=== PATIENT | female | born 1990 | race Caucasian/White ===

== ENCOUNTER 2019-02-10 16:10 | Emergency (ER) | payer OTHER ==
[2019-02-10] MEDS ORDERED: ACETAMINOPHEN 500 MG TABLET (FP) PO ONE (16:15)
--- NOTE | 2019-02-10 16:16 | PDOC ---
Rapid Medical Evaluation Time Seen by Provider: 02/10/19 16:13 Medical Evaluation: Allergies Allergy/AdvReac Type Severity Reaction Status Date / Time shellfish derived Allergy Intermediate Swelling Verified 05/12/13 08:44 02/10/19 16:15 Patient c/o: vag bleeding x 2 weeks, has depo x 3 years, did preg test x 2 (1 was +) Patient on brief exam: vss, Patient ordered for: labs, urine and u/s patient to proceed to the ED Discharge Disposition - Diagnosis Vaginal bleeding - Referrals Referrals: Sher Tompkins MD [Primary Care Provider] - - Patient Instructions - Post Discharge Activity
[2019-02-10 16:20] VITALS: BP 144/91; PULSE 85; TEMP 98.6; BMI 36.9
[2019-02-10] MEDS ORDERED: ACETAMINOPHEN 325 MG TABLET (FP) ONE (16:41)
[2019-02-10 16:47] LABS: BASO % 0.6 % (0-2.0); EOS % 3.9 % (0-4.5); HEMATOCRIT 43.3 % (32.4-45.2); HEMOGLOBIN 14.8 GM/dL (10.7-15.3); LYMPH % 33.1 % (8-40); MCH 31.1 pg (25.7-33.7); MEAN CELL VOLUME 91.3 fl (80-96); MEAN PLT VOLUME 8.3 fl (7.5-11.1); MONO % 7.1 % (3.8-10.2); NEUT % 55.3 % (42.8-82.8); PLATELET COUNT 333 K/MM3 (134-434); RBC 4.75 M/mm3 (3.60-5.2); RDW 13.3 % (11.6-15.6); WHITE BLOOD COUNT 7.8 K/mm3 (4.0-10.0)
[2019-02-10 16:57] LABS: EPI CELLS 2.7 /HPF (0-5/HPF); HYALINE CASTS 3 /lpf (0-8); URINE APPEARANCE CLEAR; URINE BACTERIA 29.4 /hpf (NEGATIVE); URINE BILIRUBIN NEGATIVE (NEGATIVE); URINE COLOR YELLOW; URINE GLUCOSE (UA) NEGATIVE (NEGATIVE); URINE KETONE NEGATIVE (NEGATIVE); URINE LEUK ESTERASE NEGATIVE (NEGATIVE); URINE NITRITE NEGATIVE (NEGATIVE); URINE PROTEIN NEGATIVE (NEGATIVE); URINE RBC 22 /hpf (0-4); URINE UROBILINOGEN 0.2 mg/dL (0.2-1.0); URINE WBC 1 /hpf (0-5)
[2019-02-10 17:14] LABS: ALBUMIN 4.2 g/dl (3.4-5.0); BILIRUBIN,TOTAL 0.4 mg/dL (0.2-1); CALCIUM 9.1 mg/dL (8.5-10.1); CREATININE 0.7 mg/dL (0.55-1.3); POTASSIUM 3.9 mmol/L (3.5-5.1); TOT PROT 7.6 g/dl (6.4-8.2)
--- NOTE | 2019-02-10 17:28 | PDOC ---
History of Present Illness - General Chief Complaint: Vaginal Bleeding Stated Complaint: ABD/PAIN/NAUSEA/VAGINAL BLEEDING Time Seen by Provider: 02/10/19 16:13 - History of Present Illness Initial Comments: 02/10/19 17:24 28 y/o 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 The bleeding began about 2 days after her regular period as spotting and has worsened since then. She describes soaking through aprox. 8 pads a day at this point. Bleeding has been accompanied by occasional stabbing pain across her lower abdomen 6/10 in severity. Last pap smear last year was normal. Pt has had depo implant for last 3years which is due for removal this month.She endorses + home test, and nausea. She denies any fevers, chills, vomiting, diarrhea, bloody stools, 02/10/19 17:53 Past History - Past Medical History Allergies/Adverse Reactions: Allergies Allergy/AdvReac Type Severity Reaction Status Date / Time shellfish derived Allergy Intermediate Swelling Verified 02/10/19 16:16 Home Medications: Ambulatory Orders No Home Medications 0 dose .ROUTE UTDICT 05/04/13 Metronidazole [Metrogel-Vaginal] 70 gm VG DAILY #0 gel.w.appl 05/12/13 Cardiac Disorders: No COPD: No Diabetes: No GI Disorders: No Disorders: No Hypercholesterolemia: No Liver Disease: No Seizures: No - Surgical History Orthopedic Surgery: Yes (FOOT SX LEFT) - Reproductive History Is Patient Now?: Yes - Suicide/Smoking/Psychosocial Hx Smoking History: Never smoked Have you smoked in the past 12 months: No Hx Alcohol Use: No Drug/Substance Use Hx: No Substance Use Type: Alcohol Review of Systems - Review of Systems Constitutional: No: Chills, Fever HEENTM: No: Blurred Vision Respiratory: No: Cough, Shortness of Breath Cardiac (ROS): No: Chest Pain ABD/GI: Yes: Symptoms Reported : No: Burning, Dysuria Musculoskeletal: Yes: Back Pain Integumentary: No: Bruising, Change in Color Neurological: No: Headache, Numbness *Physical Exam - Vital Signs Last Vital Signs Temp Pulse Resp BP Pulse Ox 98.6 F 85 18 144/91 99 02/10/19 16:10 02/10/19 16:10 02/10/19 16:10 02/10/19 16:10 02/10/19 16:10 - Physical Exam General Appearance: Yes: Nourished, Appropriately Dressed. No: Apparent Distress HEENT: positive: Normal Voice. negative: Scleral Icterus (R), Scleral Icterus ( L) Neck: positive: Supple. negative: Decreased range of motion Respiratory/Chest: positive: Lungs Clear, Normal Breath Sounds. negative: Chest Tender, Respiratory Distress, Accessory Muscle Use Cardiovascular: positive: Regular Rhythm, Regular Rate, S1, S2. negative: JVD Female Pelvic Exam: positive: normal external exam, cervical os closed, adnexal tenderness (right adnexal tenderness), vaginal bleeding Gastrointestinal/Abdominal: positive: Normal Bowel Sounds, Soft, Protuberent. negative: Tender, Pulsatile Mass, Decreased BS, Distended, Guarding Musculoskeletal: positive: Normal Inspection. negative: CVA Tenderness, Vertebral Tenderness Extremity: positive: Normal Capillary Refill, Normal Inspection, Normal Range of Motion Integumentary: positive: Normal Color, Dry, Warm Neurologic: positive: Fully Oriented, Alert, Normal Mood/Affect, Normal Response ED Treatment Course - LABORATORY CBC & Chemistry Diagram: 02/10/19 16:27 02/10/19 16:27 - ADDITIONAL ORDERS Additional order review: Laboratory Results 02/10/19 02/10/19 16:27 16:27 Sodium 142 Potassium 3.9 Chloride 106 Carbon Dioxide 27 Anion Gap 9 BUN 11.0 Creatinine 0.7 Est GFR (CKD-EPI)AfAm 137.62 Est GFR (CKD-EPI)NonAf 118.74 Random Glucose 105 Calcium 9.1 Total Bilirubin 0.4 AST 26 ALT 42 Alkaline Phosphatase 56 Total Protein 7.6 Albumin 4.2 Urine Color Yellow Urine Appearance Clear Urine pH 6.0 Ur Specific [place] 1.023 Urine Protein Negative Urine Glucose (UA) Negative Urine Ketones Negative Urine Blood 3+ H Urine Nitrite Negative Urine Bilirubin Negative Urine Urobilinogen 0.2 Ur Leukocyte Esterase Negative Urine WBC (Auto) 1 Urine RBC (Auto) 22 Urine Casts (Auto) 3 U Epithel Cells (Auto) 2.7 Urine Bacteria (Auto) 29.4 02/10/19 16:27 RBC 4.75 MCV 91.3 MCHC 34.0 RDW 13.3 MPV 8.3 Neutrophils % 55.3 Lymphocytes % 33.1 Monocytes % 7.1 Eosinophils % 3.9 D Basophils % 0.6 - RADIOLOGY Radiology Studies Ordered: Category Date Time Status TRANSVAGINAL ULTRASOUND US [US] Stat Ultrasound 02/10/19 16:51 Ordered - Medications Given in the ED: ED Medications Discontinued Medications Generic Name Dose Route Start Last Admin Trade Name Neal PRN Reason Stop Dose Admin Acetaminophen 975 mg 02/10/19 16:15 02/10/19 17:03 Tylenol - PO 02/10/19 16:16 975 mg ONCE ONE Administration Medical Decision Making - Medical Decision Making 02/10/19 17:51 8 y/o 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 Labs/Imaging/Meds cbc,cmp, hcg, ua, tvus cmp, cbc, unremarkable ua 3+ blood no leukecyte esterase, no nitrites transvaginal u/s no discrete myometrial pathology endometrial thickness 0.6cm no free intraperitoneal fluid ovaries unremarkable with several subcentimeter follicles bilaterally no doppler evidence of ovarian torision , no definite sonographic abnormality identified - Awaiting hcg results 02/10/19 18:12 Per communication with Lab @ 18:12 serum test is negative. Pt advised to follow up [facility] for bleeding and to keep her appointment to have depo implant removed. *DC/Admit/Observation/Transfer Diagnosis at time of Disposition: Vaginal bleeding - Discharge Dispostion Disposition: HOME - Referrals Referrals: Sher Tompkins MD [Primary Care Provider] - Enoch Valladares MD [Staff Physician] - Eb Love MD [Staff Physician] - Nidia Travis DO [Staff Physician] - Kyung Frank MD [Staff Physician] - Kathryn Rouse MD [Staff Physician] - Jose Ramos MD [Staff Physician] - - Patient Instructions Printed Discharge Instructions: DI for Vaginal Bleeding Additional Instructions: You were seen in the ER for vaginal bleeding. Your care is not complete until you follow up with an pallet repairer doctor. Do so within the next few days. We have given you a list of doctors if you are unable to move up your appointment with your current doctor. Make sure you keep your appointment to get your implant removed. You have also been given a copy of your ultrasound report. RETURN TO THE ER: if you continue to have persistent and heavy vaginal bleeding , persistent pelvic pain not relieved by your prescribed medications, dizziness , shortness of breath, new and persistent fevers, other foul smelling discolored vaginal discharge, or for any other concerns. For more information about recommendations for heavy menstruation please visit the [employer] Website at [email or web address] - Post Discharge Activity
--- NOTE | 2019-02-10 19:01 | PDOC ---
Attending Attestation - Resident Resident Name: Phyllis Garcia - HPI HPI: 02/10/19 18:23 Pt presents to the ED complaining of vaginal bleeding for the last 2 weeks, using approximately 8 pads per day. Nohemi is due to have her norplant replaced on 03/05. Denies abodominal pain, fevers, or lightheadness. - Physicial Exam PE: 02/10/19 19:01 Agree with resident exam. Patient is alert and well appearing in the ED. Abdomen is soft, non tender and non distended without guarding or rebound. - Medical Decision Making 02/10/19 19:02 Pt presents to the ED complaining of vaginal bleeding. No evidence of severe bleeding on pelvic exam. Abdomen is non tender. Labs are within normal limits and is negative. Dysfunctional uterine bleeding secondary to hormone withdrawal vs DUB from other causes. Will discharge home with instructions to follow up with FACILITIES MAINTENANCE TECHNICIAN and return to the ED for worsening symptoms.
== END 2019-02-10 18:28 | disposition home or self-care (01) ==
LOC: JER 16:10
DX: N93.9 Abnormal uterine and vaginal bleeding, unspecified (principal)
CPT/HCPCS: 36415; 76830-TC; 80053; 81003; 84703; 85025; 99282-25

== ENCOUNTER 2022-07-21 17:30 | Inpatient (IN) | payer OTHER ==
[2022-07-21 18:05] VITALS: BMI 30.7
[2022-07-21] MEDS ORDERED: BUTORPHANOL TARTRATE 2 MG/ML VIAL IVPB PRN (19:04)
[2022-07-21] MEDS ORDERED: PROMETHAZINE HCL 25 MG/1 ML VIAL IVPB ONE (19:04)
[2022-07-21] MEDS ORDERED: OXYTOCIN 30 UNITS in 0.9% NS 30 UNIT/500 ML INFUS.BAG IVPB SCH (19:15)
[2022-07-21 19:17] LABS: BASO % 0.1 % (0-2.0); EOS % 0.6 % (0-4.5); HEMATOCRIT 34.6 % (32.4-45.2); HEMOGLOBIN 11.9 GM/dL (10.7-15.3); LYMPH % 30.9 % (8-40); MCHC 34.4 g/dl (32.0-36.0); MEAN CELL VOLUME 90.1 fl (80-96); MEAN PLT VOLUME 9.9 fl (7.5-11.1); MONO % 6.3 % (3.8-10.2); NEUT % 62.1 % (42.8-82.8); PLATELET COUNT 203 10^3/uL (134-434); RBC 3.84 M/mm3 (3.60-5.2); RDW 13.2 % (11.6-15.6); WHITE BLOOD COUNT 7.1 K/mm3 (4.0-10.0)
[2022-07-21 19:21] LABS: INR 0.97 (0.83-1.09); PROTHROMBIN TIME (PATIENT) 11.3 SEC (9.7-13.0)
[2022-07-21] MEDS ORDERED: AMPICILLIN - 2 GM in SODIUM CHLORIDE 100 ML IVPB ONE (19:30)
[2022-07-21 19:36] LABS: CALCIUM 8.2 mg/dL (8.5-10.1)
[2022-07-21 19:37] LABS: BLOOD UREA NITROGEN 10.1 mg/dL (7-18)
[2022-07-21 19:40] LABS: CREATININE 0.5 mg/dL (0.55-1.3)
[2022-07-21] MEDS: ELECTROLYTE-148 SOLN 1,000 ML IV SCH (21:00)
[2022-07-21] MEDS ORDERED: OXYTOCIN 30 UNITS in 0.9% NS 30 UNIT/500 ML INFUS.BAG IVPB ONE (21:32)
[2022-07-22] MEDS ORDERED: FENTANYL/BUPIVACAINE/NS/PF - PCEA - 50 ML DISP.SYRIN EP ONE (00:02)
[2022-07-22] MEDS ORDERED: BUPIVACAINE HCL/PF 0.25% (2.5MG/ML) 10 ML VIAL ONE (00:04)
[2022-07-22] MEDS ORDERED: FENTANYL CITRATE/PF 50 MCG/ML VIAL ONE (00:04)
[2022-07-22] MEDS ORDERED: NALOXONE HCL 0.4 MG/ML VIAL IVPUSH PRN (00:32)
[2022-07-22] MEDS ORDERED: FENTANYL/BUPIVACAINE/NS/PF - PCEA - 50 ML DISP.SYRIN EP SCH (00:45)
[2022-07-22] MEDS: ELECTROLYTE-148 SOLN 1,000 ML IV SCH (01:15)
[2022-07-22] MEDS ORDERED: LIDOCAINE HCL 1% PRESERVATIVE FREE - 30ML VIAL ONE (02:48)
[2022-07-22] MEDS ORDERED: OXYTOCIN 20 UNITS in 0.9% NS 20 UNIT/1,000 ML INFUS.BAG IV ONE (02:48)
[2022-07-22] MEDS ORDERED: oxyCODONE HCL 5 MG TABLET PO PRN (03:09)
[2022-07-22] MEDS ORDERED: BISACODYL 10 MG SUPP.RECT RC PRN (03:09)
[2022-07-22] MEDS ORDERED: METHYLERGONOVINE MALEATE 0.2 MG/1 ML AMP IM PRN (03:09)
[2022-07-22] MEDS ORDERED: BENZOCAINE 28 GM HEMORRHOIDAL OINTMENT TP PRN (03:09)
[2022-07-22] MEDS ORDERED: WITCH HAZEL 50% (TUCKS) 40 PAD/JAR PAD TP PRN (03:09)
[2022-07-22] MEDS ORDERED: BENZOCAINE 20% 57 GM BOTTLE TP PRN (03:09)
[2022-07-22] MEDS ORDERED: ACETAMINOPHEN 325 MG TABLET (FP) PO PRN (03:09)
[2022-07-22] MEDS ORDERED: OXYTOCIN 20 UNITS in 0.9% NS 20 UNIT/1,000 ML INFUS.BAG IV SCH (03:15)
[2022-07-22] MEDS: AMPICILLIN - 1 GM in SODIUM CHLORIDE 100 ML IVPB SCH (03:49)
[2022-07-22 04:26] LABS: CORD BASE EXCESS -4.4 mmol/L (0-2); CORD HCO3 23.3 mmHg (20-29); CORD PCO2 51.9 mmHg (30-78); CORD pH 7.27 (7.14-7.44)
[2022-07-22] MEDS: IBUPROFEN 600 MG TABLET (FP) PO PRN ×3 (07:45→23:38)
[2022-07-22] MEDS: FERROUS SO4 325 MG TABLET (FP) PO SCH ×3 (07:45→17:10)
[2022-07-22] MEDS: PRENATAL VITAMINS W/ FOLIC ACID TABLET (FP) PO SCH (09:22)
[2022-07-23] MEDS: IBUPROFEN 600 MG TABLET (FP) PO PRN (05:58)
[2022-07-23 07:20] LABS: BASO % 0.2 % (0-2.0); EOS % 1.2 % (0-4.5); HEMATOCRIT 36.2 % (32.4-45.2); HEMOGLOBIN 12.5 GM/dL (10.7-15.3); LYMPH % 42.4 % (8-40); MCH 31.5 pg (25.7-33.7); MCHC 34.6 g/dl (32.0-36.0); MEAN PLT VOLUME 9.6 fl (7.5-11.1); MONO % 6.8 % (3.8-10.2); NEUT % 49.4 % (42.8-82.8); PLATELET COUNT 182 10^3/uL (134-434); RBC 3.97 M/mm3 (3.60-5.2); WHITE BLOOD COUNT 7.8 K/mm3 (4.0-10.0)
[2022-07-23] MEDS: FERROUS SO4 325 MG TABLET (FP) PO SCH ×2 (09:00→12:59)
[2022-07-23 09:04] VITALS: BP 136/89; PULSE 76; RESP 18; TEMP 98
[2022-07-23] MEDS: PRENATAL VITAMINS W/ FOLIC ACID TABLET (FP) PO SCH (09:22)
[2022-07-23] MEDS ORDERED: SENNOSIDES/DOCUSATE COMBO (SENNA PLUS) TABLET (UD) PO PRN (22:00)
== END 2022-07-23 14:15 | disposition home or self-care (01) | DRG 560 ==
LOC: JLDR 17:30 → J3W 07-22 05:00
PROVIDERS: ADMIT Obstetrics & Gynecology; ATTEND Obstetrics & Gynecology
PROC: 10E0XZZ Delivery of Products of Conception, External Approach (ICD-10-PCS; principal; 2022-07-22)
DX: O63.0 Prolonged first stage (of labor) (principal); O98.52 Other viral diseases complicating childbirth; U07.1 COVID-19; O99.214 Obesity complicating childbirth; E66.9 Obesity, unspecified; Z3A.39 39 weeks gestation of pregnancy; Z37.0 Single live birth
CPT/HCPCS: 36415; 36600; 59409; 80048; 82803; 85025; 85610; 85730; 86780; 86850; 86900; 86901; C9803-CS; U0003; U0005